=== PATIENT | female | born 1995 | race Caucasian/White ===

== ENCOUNTER 2016-09-01 21:00 | Emergency (ER) | payer OTHER ==
[2016-09-01] MEDS ORDERED: BUPIVACAINE HCL/PF 0.5% 30 ML VIAL ONE (21:30)
--- NOTE | 2016-09-01 23:15 | ER PHYSICIAN DOCUMENTATION ---
Physician Documentation [facility] Name:Martita Gill Age:20 yrs Sex:Female :1995 Arrival Date:09/01/2016 Time:21:00 Bed4 Private MD: Andrea Wesley Disposition: 09/02 00:42 Chart complete. tl1 Disposition: 09/01/16 22:36 Discharged to Home/Self Care. Impression: Finger Laceration. - Condition is Good. - Discharge Instructions: FINGER LACERATION - LACERATION, Hand. - Medical Reconciliation form form. - Follow up: [facility]; When: 2 - 3 days; Reason: Recheck today's complaints, Continuance of care. - Problem is new. - Symptoms have improved. - Notes: IF THE FLAP LOOKS PINK AND VIABLE, SUTURES CAN BE REMOVED IN 10 DAYS. KEEP HAND CLEAN AND DRY WHILE SUTURES ARE IN PLACE. HPI: 09/01 21:10 This 20 yrs old Female presents to ER with complaints of Finger Injury - tl1 RIGHT RING. 21:10 The patient or guardian reports a laceration, clean, 0.7 cm(s). The complaints affect tl1 the palmar/ulnar aspect of distal phalanx of right ring finger. Context: The problem was sustained at work, resulted from reaching into a bucket, that unbeknownst to her, had broken glass in the bottom.. Onset: The symptom(s)/episode began/occurred suddenly, just prior to arrival. Associated signs and symptoms: The patient has no apparent associated signs or symptoms. Historical: - Allergies: SULFA (SULFONAMIDES); - Home Meds: 1. None - PMHx: None; - PSHx: None; - Tetanus: < 10 years. - Ebola Screening: : Patient negative for fever greater than or equal to 101.5 degrees Fahrenheit, and additional compatible Ebola Virus Disease symptoms. - Immunization history: Flu Vaccine < 1 year. - Social history: Smoking status: Patient states was never smoker of tobacco. Patient/guardian denies using alcohol, street drugs. ROS: 21:10 MS/extremity: Positive for laceration. tl1 21:10 All other systems are negative. Exam: 21:10 Constitutional: This is a well developed, well nourished patient who is awake, alert, tl1 and in no acute distress. 21:10 Cardiovascular: Rate: normal. 21:10 Respiratory: Exam negative for acute changes, Respirations: normal. 21:10 Musculoskeletal/extremity: Exam is negative for acute changes. 21:10 Skin: injury, laceration(s), the wound is approximately 0.7 cm(s), with a depth of 0.2 cm(s), of the palmar/ulnar aspect of distal phalanx of right ring finger, that can be described as clean, shallow, C shaped flap type lacderatin with the flap having a dusky appearance prior to suturing, but a pink appearance afterward.. Vital Signs: 21:06 BP 109 / 74; Pulse 105; Resp 14; Temp 98.9; Pulse Ox 95% on R/A; Weight 61.23 kg; em1 Height 5 ft. 7 in. (170.18 cm); Pain 3/10; 21:06 Body Mass Index 21.14 (61.23 kg, 170.18 cm) em1 Laceration: 23:00 Wound Repair of 0.7cm ( 0.3in ) subcutaneous laceration to palmar aspect of distal tl1 phalanx of right ring finger. Skin/tissue flap noted.. Distal neuro/vascular/tendon intact. Anesthesia: Digital block administered with 2.5 mls of 0.5% marcaine. Wound prep: Extensive cleansing with hibiclenz, Wound irrigation with saline by nurse. Skin closed with 2 5-0 Ethilon using Interrupted sutures. Dressed with Bacitracin, tube gauze. Patient tolerated well. MDM: 21:09 Patient medically screened. tl1 21:10 Data reviewed: vital signs, nurses notes, and as a result, I will discharge patient. tl1 Counseling: I had a detailed discussion with the patient and/or guardian regarding: the historical points, exam findings, and any diagnostic results supporting the discharge/admit diagnosis, the need for outpatient follow up, wound care clinic in 2-3 days, to return to the emergency department if symptoms worsen or persist or if there are any questions or concerns that arise at home. Response to treatment: the patient's symptoms have markedly improved after treatment, and as a result, I will discharge patient. Dispensed Medications: 21:25 Drug: Marcaine (0.5 %) 1 ml; Route: Infiltration; mk2 23:11 Follow up: Response: No adverse reaction mk2 Signatures: Lulu Rosa, MADDY RN mk2 Andrea Rivas MD MD tl1
--- NOTE | 2016-09-01 23:15 | ER NURSING DOCUMENTATION ---
Nurse's Notes [facility] Name:Martita Gill Age:20 yrs Sex:Female :1995 Arrival Date:09/01/2016 Time:21:00 Bed4 Private MD: Diagnosis:Finger Laceration Presentation: 09/01 21:11 Acuity: ALY 4 21:12 Presenting complaint: Patient states: I reached into a bucket and there was broken mk2 glass in the water and it cut my finger. Transition of care: Other work. 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 21:12 Method Of Arrival: Walk In 2 Triage Assessment: 21:19 General: Appears in no apparent distress, Behavior is cooperative, pleasant. Pain: mk2 Denies pain. Musculoskeletal: Circulation, motion, and sensation intact. Injury Description: Laceration sustained to palmar aspect of distal phalanx of right middle finger. Historical: - Allergies: SULFA (SULFONAMIDES); - Home Meds: 1. None - PMHx: None; - PSHx: None; - Tetanus: < 10 years. - Ebola Screening: : Patient negative for fever greater than or equal to 101.5 degrees Fahrenheit, and additional compatible Ebola Virus Disease symptoms. - Immunization history: Flu Vaccine < 1 year. - Social history: Smoking status: Patient states was never smoker of tobacco. Patient/guardian denies using alcohol, street drugs. Screenin:22 Infectious Disease Risk None. Abuse screen: Denies threats or abuse. Nutritional mk2 screening: No deficits noted. Assessment: 21:21 Reassessment: No changes from previously documented assessment. 2 Vital Signs: 21:06 BP 109 / 74; Pulse 105; Resp 14; Temp 98.9; Pulse Ox 95% on R/A; Weight 61.23 kg; em1 Height 5 ft. 7 in. (170.18 cm); Pain 3/10; 21:06 Body Mass Index 21.14 (61.23 kg, 170.18 cm) em1 ED Course: 21:02 Patient arrived in ED. jl 21:09 Andrea Rivas MD is Attending Physician. tl1 21:11 Estrellita Hammond, RN is Primary Nurse. lc 21:11 Triage completed. lc 21:12 Primary Nurse role handed off by Estrellita Hammond, MADDY mk2 21:12 Lulu Rosa, RN is Primary Nurse. mk2 21:21 Arm band placed on Bed in low position Call Light in Reach Gowned HOB Elevated Side mk2 rails up x1. 21:25 Valuables Remains with patient. mk2 21:34 Wound care was cleaned with soap and water, Irrigation Normal Saline Patient tolerated em1 well. 22:35 [facility] is Referral Physician. tl1 23:10 Dressings: Tube gauze X 1;. mk2 Administered Medications: 21:25 Drug: Marcaine (0.5 %) 1 ml; Route: Infiltration; mk2 23:11 Follow up: Response: No adverse reaction mk2 Outcome: 22:36 Discharge ordered by . tl1 23:14 Discharged to home ambulatory. mk2 23:14 Condition: improved 23:14 Discharge instructions given to patient, Instructed on discharge instructions, follow up and referral plans. medication usage. 23:15 Patient left the ED. 2 09/02 10:22 Discharge F/U Call: Unable to reach: no answer lp Signatures: Estrellita Hammond RN RN Georgia Hays RN RN lp Kruger, Meg, RN RN 2 [facility] em1 Andrea Rivas MD MD tl1 Anirudh Gomes
== END 2016-09-01 23:15 | disposition home or self-care (01) ==
LOC: ER 21:00
DX: S61.210A Laceration without foreign body of right index finger without damage to nail, initial encounter (principal); W25.XXXA Contact with sharp glass, initial encounter; Y92.59 Other trade areas as the place of occurrence of the external cause; Y93.G1 Activity, food preparation and clean up; Y99.0 Civilian activity done for income or pay
CPT/HCPCS: 12041; 99283